=== PATIENT | male | born 1940 | race Caucasian/White ===

== ENCOUNTER 2018-04-13 17:04 | Emergency (ER) | payer OTHER, MEDICARE ==
[~2018-04-13] VITALS: Ht 175.3 cm; Wt 80.2 kg
[~2018-04-13 17:04] MED LIST: ARTANE 2MG2 MG PO; CIPRO 500MG TA500 MG PO; FLAGYL500 MG PO; LIPITOR20 MG PO; LOPRESSOR 225 MG/TAB PO; MIRAPEX0.5 MG PO; PLAVIX 75MG TAB75 MG PO; SINEMET 25/101 UDTAB PO; VASOTEC 2.2.5 MG/TAB PO; ZANTAC 150MG T150 MG PO; ZOFRAN ODT4 MG PO
[2018-04-13 17:59] LABS: COLLECTION METHOD CATHETER
[2018-04-13 18:01] VITALS: TEMP 96.7
[2018-04-13 18:08] LABS: MUCOUS Present /lpf; PH 5 (5-8); SQUAMOUS EPITHELIAL None Seen /hpf; URINE APPEARANCE Hazy; URINE BACTERIA None Seen /hpf; URINE BILIRUBIN Negative (NEGATIVE); URINE BLOOD 2+ (NEGATIVE); URINE COLOR Yellow; URINE GLUCOSE 1+ (NEGATIVE); URINE KETONE Negative (NEGATIVE); URINE LEUKOCYTE ESTERASE Negative (NEGATIVE); URINE NITRATE Negative (NEGATIVE); URINE PROTEIN(semi-quant) Negative (NEGATIVE); URINE RBC 20-50 /hpf; URINE UROBILINOGEN Negative (NEGATIVE)
[2018-04-13] MEDS ORDERED: FLOMAX 0.40.4 MG/CAP PO (18:42)
[2018-04-13] MEDS ORDERED: OMNICEF 300MG300 MG PO (18:42)
[2018-04-13 19:43] VITALS: BP 126/78; PULSE 69
== END 2018-04-13 19:10 | disposition home or self-care (01) ==
LOC: COL.ER 17:04
PROVIDERS: Emergency Medicine
DX: N39.0 Urinary tract infection, site not specified (principal); K59.00 Constipation, unspecified; I10 Essential (primary) hypertension; G20 Parkinson's disease; Z96.0 Presence of urogenital implants

== ENCOUNTER 2018-04-19 08:54 | Emergency (ER) | payer OTHER, MEDICARE ==
[~2018-04-19] VITALS: Ht 172.7 cm; Wt 82.3 kg
[~2018-04-19 08:54] MED LIST changes: +FLOMAX 0.40.4 MG/CAP PO; +OMNICEF 300MG300 MG PO
[2018-04-19 09:07] VITALS: BP 145/68; TEMP 98.5
[2018-04-19 10:07] VITALS: PULSE 88
== END 2018-04-19 10:07 | disposition home or self-care (01) ==
LOC: COL.ER 08:54
DX: R33.9 Retention of urine, unspecified (principal); G20 Parkinson's disease; Z95.5 Presence of coronary angioplasty implant and graft

== ENCOUNTER → 2018-05-15 | Outpatient (CLI) | payer MEDICARE, OTHER | LOC: COL.RAD 09:12 | DX: N42.89 Other specified disorders of prostate (principal); N32.89 Other specified disorders of bladder; Z92.3 Personal history of irradiation; C61 Malignant neoplasm of prostate | CPT/HCPCS: A9503; Q9967 ==

== ENCOUNTER → 2018-07-22 | Outpatient (CLI) | payer MEDICARE, OTHER | LOC: COL.RAD 12:32 | DX: C61 Malignant neoplasm of prostate (principal); N50.9 Disorder of male genital organs, unspecified ==

== ENCOUNTER 2019-02-06 12:14 | Emergency (ER) | payer MEDICARE, OTHER ==
[~2019-02-06] VITALS: Ht 172.7 cm; Wt 83.2 kg
[2019-02-06 12:19] VITALS: TEMP 99.7
[2019-02-06 12:59] LABS: BASO % 0.5 % (0.0-2.0); EOS # 0.2 (0.0-0.7); EOS % 2.8 % (0-4.0); GRAN # 3.5 (1.4-6.5); GRAN % 61.6 % (42.2-75.2); HEMATOCRIT 40.9 % (42.0-52.0); HEMOGLOBIN 14.4 g/dl (13.5-18.0); LYMPH # 1.5 (1.2-3.4); LYMPH % 25.3 % (20.0-51.0); MEAN CELL VOLUME 91 fl (80.0-100.0); MEAN CORPUSCULAR HEMOGLOBIN 32 pg (27.0-31.0); MEAN CORPUSCULAR HGB CONC 35 g/dl (33.0-37.0); MEAN PLATELET VOLUME 9.2 fl (7.4-10.4); MONO # 0.6 (0.1-0.6); MONO % 9.6 % (1.7-9.3); PLATELET COUNT 162 K/mm3 (130-400); RED BLOOD COUNT 4.48 M/mm3 (4.20-5.60); REDCELL DISTRIBUTION WIDTH-CV 12.3 % (11.5-14.5)
[2019-02-06 13:16] LABS: ALANINE AMINOTRANSFERASE < 6 U/L (21-72); ALBUMIN 4.3 gm/dL (3.5-5.0); ALKALINE PHOSPHATASE 67 U/L (50-136); ANION GAP 7 mmol/L (7-16); AST,SGOT 20 U/L (15-37); BILIRUBIN,TOTAL 0.7 mg/dL (0.0-1.0); BLOOD UREA NITROGEN 17 mg/dL (9-20); CALCIUM 9.7 mg/dL (8.4-10.2); CARBON DIOXIDE 27 mmol/L (22-30); CHLORIDE 105 mmol/L (98-107); CREATININE, serum 0.73 (0.66-1.25); GLUCOSE 106 mg/dL (74-106); LIPASE 96 U/L (23-300); MAGNESIUM 2.3 mg/dL (1.6-2.3); POTASSIUM 4.3 mmol/L (3.4-5.0); SODIUM 139 mmol/L (137-145); TOTAL PROTEIN 7.7 gm/dL (6.4-8.2)
[2019-02-06] MEDS ORDERED: AMOXICILLIN 8751 TAB PO (15:36)
[2019-02-06 16:05] VITALS: BP 147/71; PULSE 60
[2019-02-06 16:12] LABS: COLLECTION METHOD CLEAN CATCH
[2019-02-06 16:25] LABS: MUCOUS Present /lpf; PH 5 (5-8); SQUAMOUS EPITHELIAL None Seen /hpf; URINE APPEARANCE Clear; URINE BACTERIA None Seen /hpf; URINE BILIRUBIN Negative (NEGATIVE); URINE BLOOD Negative (NEGATIVE); URINE COLOR Yellow; URINE GLUCOSE Negative (NEGATIVE); URINE KETONE Negative (NEGATIVE); URINE LEUKOCYTE ESTERASE Negative (NEGATIVE); URINE NITRATE Negative (NEGATIVE); URINE PROTEIN(semi-quant) Negative (NEGATIVE); URINE RBC 0-2 /hpf; URINE UROBILINOGEN Negative (NEGATIVE)
== END 2019-02-06 16:08 | disposition home or self-care (01) ==
LOC: COL.ER 12:14
PROVIDERS: Emergency Medicine
DX: R19.7 Diarrhea, unspecified (principal); R53.1 Weakness; G20 Parkinson's disease
CPT/HCPCS: J7030; Q9967

== ENCOUNTER 2021-05-13 14:24 | Emergency (ER) | payer MEDICARE, OTHER ==
[~2021-05-13] VITALS: Ht 325.1 cm; Wt 90.9 kg
[~2021-05-13 14:24] MED LIST changes: +AMOXICILLIN 8751 TAB PO
[2021-05-13 16:30] VITALS: BP 147/75; PULSE 78; TEMP 98.6
[2021-05-13] MEDS ORDERED: PERCOCET 325 MG1 TA2 PO (16:50)
== END 2021-05-13 17:08 | disposition home or self-care (01) ==
LOC: COL.ER 14:24
DX: R60.0 Localized edema (principal); G20 Parkinson's disease; Z79.899 Other long term (current) drug therapy
CPT/HCPCS: A6456

== ENCOUNTER 2021-07-05 11:26 | Inpatient (IN) | payer MEDICARE, OTHER ==
[~2021-07-05] VITALS: Ht 175.3 cm; Wt 87.9 kg
[~2021-07-05 11:26] MED LIST changes: +PERCOCET 325 MG1 TA2 PO
[2021-07-11] VITALS (11 sets, daily range): BP systolic 103–161; BP diastolic 43–102; PULSE 54–91; TEMP 97.4–99
[2021-07-11] MEDS ORDERED: ASPIRIN E.C. 8181 MG PO (06:14)
[2021-07-11] MEDS ORDERED: LIPITOR 80MG80 MG PO (06:14)
[2021-07-11] MEDS ORDERED: PARCOPA 25/101 UDTAB NG (06:16)
[2021-07-11] MEDS ORDERED: PLAVIX 75MG TAB75 MG PO (06:16)
[2021-07-11] MEDS ORDERED: LASIX 20MG TABL20 MG PO (06:17)
[2021-07-11] MEDS ORDERED: PROTONIX 40MG T40 MG PO (06:18)
[2021-07-11] MEDS ORDERED: NATURAL IRON65 MG PO (06:19)
[2021-07-11] MEDS ORDERED: MIRAPEX0.5 MG PO (06:19)
[2021-07-11] MEDS ORDERED: OSCAL 500 TAB500 MG PO (06:21)
--- NOTE | 2021-07-11 10:44 | NUR ---
PT TO ROOM 332 PER BED WITH MAK SHAFFER PACU @1015. PT TURNED AND CLEANED FROM INCONTINENT STOOL, BILATERAL STAGE 1 PRESSURE SORES WITH DOUDERM DRESSINGS TO GLUTEAL FOLDS. LLE WRAPPED WITH WILLIAM FOR WEAPING WOUNDS, OCCLUSIVE DRESSING TO LEFT HIP.IV 20 GA LEFT HAND PER PUMP. PT IS DROWSEY BUT RESPONDS TO VERBAL.
--- NOTE | 2021-07-11 13:52 | NUR ---
INDEPENDENT BEAUTY CONSULTANT SHAYAN SPOKE WITH PT AND SAID GENERAL DIET IS WHAT PT EATS AT HOME AND WANTS TO CONTINUE WITH THIS PLAN.CONTACTED TAYA KRISHNAMURTHY FOR ORDERS.
--- NOTE | 2021-07-11 14:23 | NUR ---
REPORTS PT TAKES MEDS CRUSHED IN APPLE SAUCE. OR CRUSHED IN WATER.
--- NOTE | 2021-07-11 14:52 | NUR ---
PT TOLERATED APPLESAUCE AND CK BROTH. WANTS DIET ADVANCED. OK WITH TAYA KRISHNAMURTHY.
--- NOTE | 2021-07-11 15:57 | NUR ---
PT AND SAID PT HAS NOT WALKED IN OVER 2 YEARS, PT IS ALSO INCONTINENT OF URINE AND FECES.
--- NOTE | 2021-07-11 18:52 | NUR ---
REPORT TO INESSA SHAFFER.
--- NOTE | 2021-07-11 22:04 | NUR ---
Patient assessed around 2009. Alert, and oriented to self. Disoriented to time, place, and situation. Complained of pain to left hip, given PRN Roxicodone. Peripheral IV to left hand. On oxygen at 3 L/min via NC. LS CTA in upper lobes, diminished in lower. Respirations even and unlabored. HRR. Capillary refill less than 3 seconds. Non-tenting skin turgor. BSAx4. Abdomen soft and non-tender. PEG tube in place, clamped, not in use, at 3 cm xenia. Dressing to ulcers on bottom CDI. Dressing to left hip surgical site CDI. Ice to area. Rogers to LLE. MIGDALIA to RLE. Legs contracted, bent at knees. Voices no questions, needs, or concerns at this time. Resting in bed with call ligth within reach. Bed alarm on.
[2021-07-12 04:01] VITALS: BP 106/42; PULSE 76; TEMP 98.5
--- NOTE | 2021-07-12 05:48 | NUR ---
Patient confused, and yells out for assistance. Does not know time, place, or situation. Very forgetful. Patient did pull out IV to left hand. New IV placed to right forearm. Patient has denied having pain and discomfort since receiving PRN Roxicodone, and has not had any s/sx of pain or discomfort, such as facial grimacing and moaning. Patient has been checked, changed, and repositioned in bed about every 2 hours during this shift. Has been incontinent of bowel and bladder. Voices no questions, needs, or concerns at this time. Resting in bed with call light within reach. Bed alarm on.
[2021-07-12 06:58] LABS: HEMATOCRIT 35.3 % (42.0-52.0)
--- NOTE | 2021-07-12 07:18 | NUR ---
UPDATED MIRELLA LUNA APRN ON PT STATUS AND DISCUSSED PLAN OF CARE. BAND TACKER FOR PLACEMENT AND FACILATATION WITH FAMILY. PT CONTINUES TO BE INCONTINENT OF URINE AND STOOL. PT DENIES PAIN AT THIS TIME. PT NOT USING CALL LIGHT AND CALLS OUT NEEDS.
--- NOTE | 2021-07-12 07:49 | NUR ---
ASSISTED PT WITH SET UP FOR BREAKFAST. PT REPOSITIONED IN BED AND CUT UP SAUSAGE AND TOAT.
[2021-07-12 08:00] VITALS: BP 137/63; PULSE 93; TEMP 98.7
--- NOTE | 2021-07-12 09:47 | NUR ---
Initial visit; Patient, "Genaro" thanked [employer] Judicial Law Clerk for looking in on him and offering prayer and God's blessings.
--- NOTE | 2021-07-12 09:51 | NUR ---
PT UP TO RECLINER WITH THERAPY. PT REFUSED AM MEDS MIXED WITH APPLE SAUCE, PT SPIT OUT WHEN GIVEN. PT ATE APPROX 20% OF BREAKFAST TRAY. PT CONINUES TO BE INCONTINENT OF URINE. PERSONAL CARE PROVIDED NEEDED. SPOKE WITH DIESEL MACHINIST RE WOUNDS PT PRESENTED WITH AND HOME CARE NOT ADEQUATE FOR ADVANCING DISEASE PROCESSES. PLACEMENT WOULD BE BENEFICIAL FOR PT. AALIYAH WILL LOOK AT OPTIONS FOR PLACEMENT.
--- NOTE | 2021-07-12 10:38 | NUR ---
LINNENS CHANGED AND PT REPOSITIONED IN RECLINER.
[2021-07-12 12:00] VITALS: BP 139/69; PULSE 88; TEMP 98.2
--- NOTE | 2021-07-12 15:20 | NUR ---
LOURDES met with the patient and his , Venice (c.ph#[phone]), to discuss discharge plan. The patient was sleeping. [place] outside of [place] with his , Venice. Venice reports that the patient is wheelchair bound and needs assistance with ADLs and with transfers. She reports that the patient is not receiving any home health at this time and that she has been helping the patient with all his ADLs and is his caregiver. The patient's PCP is Dr. Mario Mora and he receives his medications from [facility] in . The patient does not have a DPOA-HC, but the patient reports that the patient does have one completed. She states that she should have a copy in her car and can bring it up to the nurses station, the next time she comes up. She reports that she believes the patient designated a couple of his children at his DPOA-HC. The patient reports that the patient has 10 children and that they live all over. The patient had a hip replacement and his is interested in post-acute rehab upon discharge. LOURDES provided her with Medicare.gov's list of nursing homes around [place]. Venice was open for LOURDES to send a bunch of referrals, but declined a referral to [facility]. LOURDES contacted and faxed referrals to [facility], [facility], [facility], [facility], [facility], [facility], [facility], [facility], [facility], [facility], and [facility]. Awaiting screens.
[2021-07-12 16:00] VITALS: BP 118/74; PULSE 85; TEMP 98.1
--- NOTE | 2021-07-12 16:40 | NUR ---
PT INCONTINENT OF URINE AND STOOL. PROVIDED SLAVA CARES AND BED BATH COMPLETE.
[2021-07-12 19:39] VITALS: BP 115/48; PULSE 77; TEMP 99.2
--- NOTE | 2021-07-12 21:30 | NUR ---
PT IS INCONTINENT OF BOWEL ET BLADDER WHEN REPOSITIONED IN BED. IS ALERT ET ORIENTED TO SELF ET PLACE @ THIS TIME. PT STATES, YOU PEOPLE ONLY HAVE TO CHANGE ME EVERY 15 MINUTES. SLAVA CARE IS GIVEN ET CLEAN BRIEF IS PUT ON. TAKES EVENING PILLS CRUSHED IN VANILLA PUDDING. PT IS COOPERATIVE BUT SEEMS TO OCCASIONALLY HAVE DIFFICULTY SWALLOWING. TAKES SEVERAL MINUTES TO SWALLOW EACH SPOONFUL OF PUDDING GIVEN. NO COUGHING OR CHOKING NOTED. PT SEEMS TO SWALLOW WATER WITH MORE EASE. PT DENIES OTHER NEEDS. BED ALARM ON. CALL LIGHT WITHIN REACH.
--- NOTE | 2021-07-12 23:50 | NUR ---
PT REFUSING TYLENOL. STATES THAT HE WOULD LIKE TO SLEEP. BED ALARM ON, CALL LIGHT WITHIN REACH.
[2021-07-13] VITALS (7 sets, daily range): BP systolic 102–159; BP diastolic 44–67; PULSE 72–91; TEMP 97.9–98.6
--- NOTE | 2021-07-13 04:02 | NUR ---
PT A&O TO SELF ET PLACE @ THIS TIME. REPOSITIONED IN BED ET IS INCONTINENT OF BOWEL ET BLADDER. SLAVA CARE PROVIDED ET BRIEF CHANGED. PT STATES THAT HE IS THIRSTY ET REQUESTS ORANGE JUICE. PT DRINKS WITH ASSISTANCE, SEEMS TO SWALLOW EASILY, NO COUGHING OR CHOKING NOTED. PT DENIES OTHER NEEDS @ THSI TIME. CALL LIGHT WITHIN REACH. BED ALARM ON.
[2021-07-13 06:59] LABS: HEMATOCRIT 34.6 % (42.0-52.0)
--- NOTE | 2021-07-13 08:30 | NUR ---
Danya, at [facility], reports that they will probably have to decline the patient.
--- NOTE | 2021-07-13 09:40 | NUR ---
Follow-up visit; Patient thanked Solar [employer] Installation Crew Member for looking in on him to check on his progress and to offer a blessing.
--- NOTE | 2021-07-13 09:52 | NUR ---
PT UP TO RECLINER WITH THERAPY THIS AM. PT REMAINS INCONTINENT OF BOWEL AND URINE. AM MEDS TAKEN CRUSHED IN H2O. BLE WITH CONTRACTURES OF JOINTS. DRESSING TO LEFT HIP CDI WITH AQUACEL OVER GLUED INCISION. STILL WAITING ACCEPTANCE FOR TRANSFER TO REHAB. UPDATED PATIENT BUT PT IS CONFUSED. WILL UP DATE WHEN SHE GETS HERE.
--- NOTE | 2021-07-13 14:10 | NUR ---
Doug, at [facility], reports that they have declined the patient. Melanie, at [facility], reports that they are interested in the patient. They would request a copy of the patient's DPOA-HC though before they could take. They also asked for a copy of the patient's seconday insurance. Kristyn, at [facility], reports that they are interested in the patient. They inquired if the patient is COVID vaccinated and if not, is he willing to be vaccinated. They also report that his PCP does not follow patients up in [place]. LOURDES met with the patient's , Venice, to update on the above and inquire about the DPOA-HC. Venice reports that she left the DPOA-HC is her other vehicle, but that Dr. Mora's office should have a copy of it. LOURDES contacted Dr. Mora's office and requested a copy of his DPOA-HC and his insurance cards. SW received a copy of the documents, via fax. SW placed a copy in the patient's chart. LOURDES updated Venice. The patient's DPOA-HC is his daughter, Brent Collier (ph#[phone]). Brent lives in [place], [place]. LOURDES contacted Brent and updated her on the above. Brent is hopeful for a closer facility and interested in [facility], [facility], or possibly [facility]. Manuela, at [facility], reports that they are interested in the patient. They request RN and further progress notes. SW to fax updates to the above facilites.
--- NOTE | 2021-07-13 15:12 | NUR ---
Melanie, at [facility], reports that they are able to accept the patient tomorrow. She states that she just talked to the patient's daughter, Brent, and is emailing admisson paperwork to her now to complete. Melanie states that she will contact LOURDES tomorrow morning to set up a transport time. LOURDES met with the patient's , Venice, to update. Venice confirms that the patient would prefer [facility], since it is closer to home and they are in agreement to the plan. LOURDES updated the patient's RN. *Discharge plan: [facility]*
[2021-07-13] MEDS ORDERED: ASPIRIN E.C. 8181 MG PO (21:39)
[2021-07-13] MEDS ORDERED: ROXICODONE 55 MG/TAB PO (21:40)
[2021-07-13] MEDS ORDERED: TYLENOL 500MG500 MG PO (21:40)
[2021-07-14 03:04] VITALS: BP 129/79; PULSE 78; TEMP 98.1
--- NOTE | 2021-07-14 03:11 | NUR ---
PT IS AWAKE ET YELLING. PT IS CONFUSED. ASKS IF "MAW IS OUTSIDE". ATTEMPTS MADE TO RE-ORIENT PT. PT CLOSES EYES ET SEEMS TO RETURN TO SLEEP. INCONTINENT OF BOWEL ET BLADDER. SKIN CARE PROVIDED ET LINENS CHANGED. BED ALARM ON. CALL LIGHT WITHIN REACH.
--- NOTE | 2021-07-14 06:00 | NUR ---
PT IS SLEEPING IN BED. INCONTINENT OF BOWEL ET BLADDER. SKIN CARE PROVIDED ET BRIEFS CHANGED. BED ALARM ON. CALL LIGHT WITHIN REACH.
[2021-07-14 07:00] LABS: HEMOGLOBIN 11.9 g/dl (13.5-18.0)
[2021-07-14 07:03] LABS: HEMATOCRIT 35.1 % (42.0-52.0)
--- NOTE | 2021-07-14 08:00 | NUR ---
Patient in bed resting. Isidro hose to RLE. Acewrap to LLE. Aquacell to left hip is CDI. INT to right forarm. Pedal pulses intact. Denies needs at this time. Spouse at bedside.
[2021-07-14 08:12] VITALS: BP 115/60; PULSE 72; TEMP 99.4
--- NOTE | 2021-07-14 08:23 | NUR ---
Ema, at [facility], reports that they have declined the patient.
--- NOTE | 2021-07-14 09:08 | NUR ---
The patient is to discharge today, 07/14, to [facility] for a skilled stay. Transportation was scheduled at 1100, via [facility]. LOURDES informed the patient's RN, his , and daughter (Brent) of the time over the phone. They were all agreeable to the time. LOURDES also read the IM form outloud to Brent over the phone. Brent verbalized understanding and gave LOURDES approval to sign the form on her behalf. LOURDES provided her with a copy. No additional needs at this time.
--- NOTE | 2021-07-14 11:07 | NUR ---
Patient discharging to [facility]. Assisted patient to dress. X2 assist to transfer to wheelchair. INT to right forarm discontinued, catheter tip intact. Family at bedside. Attempted to contact [place] for report x 2.
== END 2021-07-14 11:07 | DRG 470 ==
LOC: SURG 07-11 05:35 → INPTSU 07-11 05:35 → SURG 07-11 07:30
PROVIDERS: Physician Assistant; ADMIT Orthopaedic Surgery
PROC: 0SRB0JZ Replacement of Left Hip Joint with Synthetic Substitute, Open Approach (ICD-10-PCS; principal; 2021-07-11 07:30)
DX: M16.12 Unilateral primary osteoarthritis, left hip (principal); I83.218 Varicose veins of right lower extremity with both ulcer of other part of lower extremity and inflammation; I83.228 Varicose veins of left lower extremity with both ulcer of other part of lower extremity and inflammation; L97.819 Non-pressure chronic ulcer of other part of right lower leg with unspecified severity; L97.829 Non-pressure chronic ulcer of other part of left lower leg with unspecified severity; M24.552 Contracture, left hip; C61 Malignant neoplasm of prostate; I25.10 Atherosclerotic heart disease of native coronary artery without angina pectoris; I25.2 Old myocardial infarction; E78.5 Hyperlipidemia, unspecified; G20 Parkinson's disease; F41.9 Anxiety disorder, unspecified; Z79.891 Long term (current) use of opiate analgesic; Z79.82 Long term (current) use of aspirin
CPT/HCPCS: C1713; C1776; J0690; J2250; J2704; J3010; J7120; J7121